=== PATIENT | female | born 1965 | race Caucasian/White ===

== ENCOUNTER 2019-01-16 11:20 | Inpatient (IN) | payer MEDICARE, MEDICAID ==
[2019-01-16] MEDS ORDERED: Albuterol/Ipratropium 3.0-0.5 MG/3 ML Neb Soln NEB ONE ×2 (11:47→12:21)
--- NOTE | 2019-01-16 11:50 | EDM.PDOC ---
ED HPI GENERAL MEDICAL PROBLEM - General Chief Complaint: Respiratory Problem Stated Complaint: SOB HAS CANCER IN RT LUNG Time Seen by Provider: 01/16/19 11:42 Source of Information: Reports: Patient History Limitations: Reports: No Limitations - History of Present Illness INITIAL COMMENTS - FREE TEXT/NARRATIVE: 53-year-old female presents to the ED in the accompaniement of her daughter. Patient was recently diagnosed within the last month with left-sided lung cancer with known metastatic disease to the supraclavicular lymph node and perihilar nodes. Considered inoperable. Zosyn the ED acutely short of breath with rattling and wheezing in her chest. She is she is very dyspneic on minimal exertion can barely talk. Sputum that's coming up has a yellowish green tinge to it without blood. She's had some chills but no fever present. Appetite remains extremely poor. Patient states she's lost about 40 pounds of weight in the last 2 months. Nothing tastes good. Mukherjee at this time whether she is contemplating or receiving chemotherapy. Present sats are only 88% on room air. She will be started on oxygen at 3 L/m by nasal cannula. She is audibly wheezing. She will be given a DuoNeb as soon as possible. Lung biopsies were done towards the end of last month but they have not yet received the pathology report in [place] not been set up with a formal appointment with oncology either in [place] or in [place]. They're going to go wherever they can get an appointment the quickest. Onset: Today Onset Date: 01/14/19 (Gradually getting worse over the last 3-4 days.) Duration: Day(s):, Getting Worse Location: Reports: Chest (More more dyspneic on minimal exertion and now wheezing at rest. Didn't sleep at all last night.) Quality: Reports: Other Severity: Severe (Dyspnea with wheeze) Improves with: Reports: Rest Worsens with: Reports: Movement Context: Denies: Activity, Exercise (Any kind of activity makes it much worse.) , Lifting, Sick Contact, Trauma, Other Associated Symptoms: Reports: Chest Pain, Cough, cough w sputum (Some chest pain with deep inspiration.), Fever/Chills, Loss of Appetite, Malaise (With severe weight loss over the last 6-8 weeks), Shortness of Breath, Weakness. Denies: Confusion, Diaphoresis ( Some yellowish greenish sputum.), Headaches ( Chills but no defined fever), Nausea/Vomiting, Rash, Seizure, Syncope Treatments RADIATION CONTROL SPECIALIST: Reports: Other (see below) (None.) Right Upper Chest Pain Score (Numeric/FACES): 2 - Related Data Allergies Allergy/AdvReac Type Severity Reaction Status Date / Time No Known Allergies Allergy Verified 01/16/19 11:40 Home Meds: Home Meds Albuterol [Proventil HFA] 2 puff INH Q4H PRN 01/16/19 [History] Albuterol/Ipratropium [DuoNeb 3.0-0.5 MG/3 ML] 3 ml .XX QID #120 neb 01/16/19 [ Rx] levoFLOXacin [Levaquin] 500 mg PO DAILY #9 tab 01/16/19 [Rx] predniSONE [Deltasone] 20 mg PO ASDIRECTED #15 tablet 01/16/19 [Rx] Past Medical History Oncologic (Cancer) History: Reports: Lung, Metastatic (Diagnosis left lung cancer about a month ago. Headache to the perihilar lymph nodes as well as supraclavicular lymph node the left side.) Social & Family History - Living Situation & Occupation Living situation: Reports: Occupation: Disabled ED ROS GENERAL - Review of Systems Review Of Systems: See Below Constitutional: Reports: Chills, Malaise, Weakness, Fatigue, Decreased Appetite (She estimates 30-40 pounds in the last 6 weeks), Weight Loss. Denies: Fever HEENT: Reports: Glasses Respiratory: Reports: Shortness of Breath, Wheezing, Cough, Sputum. Denies: Pleuritic Chest Pain, Hemoptysis (Yellowish green in color.) Cardiovascular: Reports: Chest Pain (Central chest pain.), Dyspnea on Exertion, Orthopnea. Denies: Blood Pressure Problem, Claudication (Not usually but blood pressure is [phone] at the time of exam.), Edema, Lightheadedness, Palpitations Endocrine: Reports: Fatigue GI/Abdominal: Reports: Anorexia, Constipation, Decreased Appetite : Reports: No Symptoms Musculoskeletal: Reports: No Symptoms Skin: Reports: No Symptoms Neurological: Reports: No Symptoms Psychiatric: Reports: No Symptoms Hematologic/Lymphatic: Reports: No Symptoms ED EXAM, GENERAL - Physical Exam Exam: See Below Exam Limited By: Respiratory Distress General Appearance: Alert, Severe Distress, Other (Temperatures 37.1. Pulse 102 in sinus respiratory 32-36/m with sats of 88% on room air.) Eye Exam: Bilateral Eye: Normal Inspection (Mild left low pallor. No scleral icterus.) Throat/Mouth: Other (Tongue is dry and coated.) Neck: Normal Inspection, Supple, Non-Tender, Full Range of Motion. No: Lymphadenopathy (L), Lymphadenopathy (R) Respiratory/Chest: No Respiratory Distress, Respiratory Distress, Decreased Breath Sounds (Breath sounds decreased to both lower bases by 20%.), Rhonchi, Wheezing (Wheezing and rhonchi throughout all lung goldstein.). No: Normal Breath Sounds (Marked tachypnea at rest with sats of 88% on room air.), Rales Cardiovascular: Normal Peripheral Pulses, Regular Rate, Rhythm, No Edema, No Gallop, Other (Heart sounds are difficult to hear due to rhonchi in the chest.) Peripheral Pulses: 2+: Posterior Tibial (L), Posterior Tibial (R), Dorsalis Pedis (L), Dorsalis Pedis (R) GI/Abdominal: Normal Bowel Sounds, Soft, Non-Tender, No Organomegaly, No Abnormal Bruit, No Mass, Pelvis Stable Back Exam: Other (All spinous processes are easily visible. Ribs are visible as well.) Extremities: Normal Inspection ( Kicked in appearance.), Normal Range of Motion , Non-Tender Neurological: Alert, Oriented, CN II-XII Intact, Normal Cognition Psychiatric: Anxious, Other (Respiratory distress.) Skin Exam: Warm, Dry, Intact, Normal Color, No Rash, Other (Does not feel febrile at this time.) EKG INTERPRETATION EKG Date: 01/16/19 Time: 11:55 Rhythm: NSR Rate (Beats/Min): 94 [place]: Normal P-Wave: Enlarged QRS: Other (Right atrial hypertrophy. Early R-wave transition consider right ventricular hypertrophy versus septal hypertrophy pattern. There is near Q-wave in V1 and V2. Cannot rule out old anteroseptal myocardial infarction. Mildly decreased voltage limb leads) ST-T: Other (Q-wave in aVL and T-wave flattening. Nonspecific finding.) QT: Normal EKG Interpretation Comments: Abnormal ECG Course - Vital Signs Last Recorded V/S: Last Vital Signs Temp 37.1 C 01/16/19 11:35 Pulse 92 01/16/19 12:50 Resp 18 01/16/19 12:50 BP 102/64 01/16/19 12:50 Pulse Ox 96 01/16/19 12:50 - Orders/Labs/Meds Orders: Active Orders 24 hr Category Date Time Status EKG Documentation Completion [RC] STAT Care 01/16/19 11:47 Active Oxygen Therapy [RC] ASDIRECTED Care 01/16/19 11:48 Active RT Aerosol Therapy [RC] ASDIRECTED Care 01/16/19 11:47 Active RT Aerosol Therapy [RC] ASDIRECTED Care 01/16/19 12:21 Active CULTURE BLOOD [BC] Stat Lab 01/16/19 12:03 Received CULTURE BLOOD [BC] Stat Lab 01/16/19 12:20 Received Dextrose 5%-0.9% NaCl [Dextrose 5%-Normal Saline] 1,000 Med 01/16/19 12:00 Active ml IV ASDIRECTED Blood Culture x2 Reflex Set [OM.PC] Stat Oth 01/16/19 11:49 Ordered Medication Orders Dextrose/Sodium Chloride (Dextrose 5%-Normal Saline) 1,000 mls @ 150 mls/hr IV ASDIRECTED TONIA Last Admin: 01/16/19 12:10 Dose: 150 mls/hr Labs: Laboratory Tests 01/16/19 01/16/19 01/16/19 Range/Units 11:56 11:56 11:56 WBC 10.78 H (3.98-10.04) K/mm3 RBC 4.64 (3.98-5.22) M/mm3 Hgb 12.3 (11.2-15.7) gm/dl Hct 38.8 (34.1-44.9) % MCV 83.6 (79.4-94.8) fl MCH 26.5 (25.6-32.2) pg MCHC 31.7 L (32.2-35.5) g/dl RDW Std Deviation 45.8 (36.4-46.3) fL Plt Count 487 H (182-369) K/mm3 MPV 9.1 L (9.4-12.3) fl Neutrophils % (Manual) 73 H (40-60) % Band Neutrophils % 0 (0-10) % Lymphocytes % (Manual) 23 (20-40) % Atypical Lymphs % 0 % Immat Monocytes % (Man) 0 Monocytes % (Manual) 4 (2-10) % Eosinophils % (Manual) 0 L (0.7-5.8) % Basophils % (Manual) 0 L (0.1-1.2) Metamyelocytes % 0 Myelocytes % 0 Promyelocytes % 0 Blast Cells % 0 Plasma Cell % (Manual) 0 Nucleated RBCs 0.0 % Platelet Estimate Adequate RBC Morph Comment Normal PT 11.0 (9.7-12.0) SECONDS INR 1.01 APTT 28 (22-31) SECONDS Sodium 136 (136-145) mEq/L Potassium 3.5 (3.5-5.1) mEq/L Chloride 98 (98-107) mEq/L Carbon Dioxide 30 (21-32) mEq/L Anion Gap 11.5 (5-15) BUN 7 (7-18) mg/dL Creatinine 0.7 (0.55-1.02) mg/dL Est Cr Clr Drug Dosing 71.71 mL/min Estimated GFR (MDRD) > 60 (>60) mL/min BUN/Creatinine Ratio 10.0 L (14-18) Glucose 137 H (74-106) mg/dL Lactic Acid (0.4-2.0) mmol/L Calcium 9.8 (8.5-10.1) mg/dL Magnesium 1.9 (1.8-2.4) mg/dl Total Bilirubin 0.3 (0.2-1.0) mg/dL AST 13 L (15-37) U/L ALT 23 (14-59) U/L Alkaline Phosphatase 91 (46-116) U/L Troponin I < 0.017 (0.00-0.056) ng/mL C-Reactive Protein 6.4 H* (<1.0) mg/dL NT-Pro-B Natriuret Pep (0-125) pg/mL Total Protein 7.8 (6.4-8.2) g/dl Albumin 3.1 L (3.4-5.0) g/dl Globulin 4.7 gm/dL Albumin/Globulin Ratio 0.7 L (1-2) 01/16/19 01/16/19 Range/Units 11:56 11:56 WBC (3.98-10.04) K/mm3 RBC (3.98-5.22) M/mm3 Hgb (11.2-15.7) gm/dl Hct (34.1-44.9) % MCV (79.4-94.8) fl MCH (25.6-32.2) pg MCHC (32.2-35.5) g/dl RDW Std Deviation (36.4-46.3) fL Plt Count (182-369) K/mm3 MPV (9.4-12.3) fl Neutrophils % (Manual) (40-60) % Band Neutrophils % (0-10) % Lymphocytes % (Manual) (20-40) % Atypical Lymphs % % Immat Monocytes % (Man) Monocytes % (Manual) (2-10) % Eosinophils % (Manual) (0.7-5.8) % Basophils % (Manual) (0.1-1.2) Metamyelocytes % Myelocytes % Promyelocytes % Blast Cells % Plasma Cell % (Manual) Nucleated RBCs % Platelet Estimate RBC Morph Comment PT (9.7-12.0) SECONDS INR APTT (22-31) SECONDS Sodium (136-145) mEq/L Potassium (3.5-5.1) mEq/L Chloride (98-107) mEq/L Carbon Dioxide (21-32) mEq/L Anion Gap (5-15) BUN (7-18) mg/dL Creatinine (0.55-1.02) mg/dL Est Cr Clr Drug Dosing mL/min Estimated GFR (MDRD) (>60) mL/min BUN/Creatinine Ratio (14-18) Glucose (74-106) mg/dL Lactic Acid 1.9 (0.4-2.0) mmol/L Calcium (8.5-10.1) mg/dL Magnesium (1.8-2.4) mg/dl Total Bilirubin (0.2-1.0) mg/dL AST (15-37) U/L ALT (14-59) U/L Alkaline Phosphatase (46-116) U/L Troponin I (0.00-0.056) ng/mL C-Reactive Protein (<1.0) mg/dL NT-Pro-B Natriuret Pep 117 (0-125) pg/mL Total Protein (6.4-8.2) g/dl Albumin (3.4-5.0) g/dl Globulin gm/dL Albumin/Globulin Ratio (1-2) Meds: Medications Generic Name Dose Route Start Last Admin Trade Name Heide PRN Reason Stop Dose Admin Dextrose/Sodium Chloride 1,000 mls @ 150 mls/hr 01/16/19 12:00 01/16/19 12:10 Dextrose 5%-Normal Saline IV 150 mls/hr ASDIRECTED TONIA Administration Discontinued Medications Generic Name Dose Route Start Last Admin Trade Name Heide PRN Reason Stop Dose Admin Albuterol/Ipratropium 3 ml 01/16/19 11:47 01/16/19 11:55 Duoneb 3.0-0.5 Mg/3 Ml NEB 01/16/19 11:48 3 ml ONETIME ONE Administration Albuterol/Ipratropium 3 ml 01/16/19 12:21 01/16/19 12:50 Duoneb 3.0-0.5 Mg/3 Ml NEB 01/16/19 12:22 3 ml ONETIME ONE Administration Levofloxacin 500 mg 01/16/19 13:02 01/16/19 13:12 Levaquin PO 01/16/19 13:03 500 mg ONETIME ONE Administration Methylprednisolone Sodium Succinate 125 mg 01/16/19 13:02 01/16/19 13:09 Solu-Medrol IVPUSH 01/16/19 13:03 125 mg ONETIME ONE Administration - Radiology Interpretation Free Text/Narrative:: 53-year-old female presents to the ED with severe dyspnea and respiratory distress. She can talk on only one or 2 word sentences. She has audible wheezing and rhonchi in all lung goldstein. O2 sats are only 88% on room air with tachypnea at 32-34 per minute. Plan she will receive DuoNeb immediately. IV will be D5 normal saline at 150 mils per hour. Oxygen will be started at 3 L/m per nasal cannula. Septic workup will be completed since she is coughing up greenish sputum but is afebrile at present. - Re-Assessments/Exams Free Text/Narrative Re-Assessment/Exam: 01/16/19 12:20 she is able to speak in full sentences now. Sats are 98% on 2 L/ m. She remains audible wheezing and has a much more congested sounding cough now. Will repeat DuoNeb at this time. Chest x-ray just gotten done. 01/16/19 12:27 chest x-ray reveals a diffuse vascular congestion pattern. There is a ringlike density adjacent to the right perihilar area of unclear etiology. It has a thickened wall. Interstitial changes are also seen within the right upper chest. Mild blunting of the left costophrenic angle is also appreciated likely due to small pleural effusion. Appears to be a segment of atypical atelectasis. The upper mediastinum is widened and difficult to exclude adenopathy. Previous cervical spine surgery appreciated. 01/16/19 12:53 Labs reveal a white count of 10.78 with 73% neutrophils and no band cells. Hemoglobin is 12.3 with hematocrit of 38.8. Platelet count is elevated at 487,000. PT is 11.0 with an INR 1.01. PTT is 28. Sodium 136 potassium low-normal at 3.5. Chloride is 98 with a bicarbonate 30. Anion gap is 11.5 BUN is 7 with a creatinine of 0.7. GFR is greater than 60. Glucose is 137 lactic acid 1.9. Calcium is 9.8 magnesium 1.9. Liver function is normal. C- reactive protein is 6.4 troponin I is less than 0.017. BNP is 117. Total protein is 7.8 with an albumin fraction that is low at 3.1. She is receiving second dose of DuoNeb now. She does have a home nebulizer. Chemotherapies is in the wind. She is still awaiting oncology consultation after lung biopsy was done last week. Going to give her dose of Levaquin 500 by mouth. She'll receive the first dose of steroid Solu-Medrol 125 mg IV now. 01/16/19 13:23 upon standing and walking in the room she decompensated severely down to 86%. Therefore she is going to require admission to hospital for oxygen support and continued nebulizer treatments to help clear her lungs of thickened mucus. I have given her her initial dose of Levaquin orally in the department not anticipating her need to stay. I'll discuss case with on-call hospice Dr. Tran with a view to admission to the hospital med surgery. 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 Qualified Code(s): C34.91 - Malignant neoplasm of unspecified part of right bronchus or lung Pneumonia Qualifiers: Lung location: upper lobe of lung - Discharge Information *PRESCRIPTION DRUG MONITORING PROGRAM REVIEWED*: Not Applicable *COPY OF PRESCRIPTION DRUG MONITORING REPORT IN PATIENT DELMIS: Not Applicable Prescriptions: Albuterol/Ipratropium [DuoNeb 3.0-0.5 MG/3 ML] 3 ml .XX QID #120 neb levoFLOXacin [Levaquin] 500 mg PO DAILY #9 tab predniSONE [Deltasone] 20 mg PO ASDIRECTED #15 tablet Instructions: Chronic Obstructive Pulmonary Disease Exacerbation, [id number] , Cough, Adult, [id number] Referrals: Chiquita Fernandez NP [Primary Care Provider] - Forms: ED Department Discharge - My Orders Last 24 Hours: My Active Orders 01/16/19 11:47 EKG Documentation Completion [RC] STAT RT Aerosol Therapy [RC] ASDIRECTED 01/16/19 11:48 Oxygen Therapy [RC] ASDIRECTED 01/16/19 11:49 Blood Culture x2 Reflex Set [OM.PC] Stat 01/16/19 12:00 Dextrose 5%-0.9% NaCl [Dextrose 5%-Normal Saline] 1,000 ml IV ASDIRECTED 01/16/19 12:03 CULTURE BLOOD [BC] Stat 01/16/19 12:20 CULTURE BLOOD [BC] Stat 01/16/19 12:21 RT Aerosol Therapy [RC] ASDIRECTED - Assessment/Plan Last 24 Hours: My Active Orders 01/16/19 11:47 EKG Documentation Completion [RC] STAT RT Aerosol Therapy [RC] ASDIRECTED 01/16/19 11:48 Oxygen Therapy [RC] ASDIRECTED 01/16/19 11:49 Blood Culture x2 Reflex Set [OM.PC] Stat 01/16/19 12:00 Dextrose 5%-0.9% NaCl [Dextrose 5%-Normal Saline] 1,000 ml IV ASDIRECTED 01/16/19 12:03 CULTURE BLOOD [BC] Stat 01/16/19 12:20 CULTURE BLOOD [BC] Stat 01/16/19 12:21 RT Aerosol Therapy [RC] ASDIRECTED
[2019-01-16] MEDS ORDERED: Dextrose 5%-0.9% NaCl 1,000 ML IV SCH (12:00)
[2019-01-16] MEDS ORDERED: methylPREDNISolone Sodium Succinate 125 MG/2 ML SDV IVPUSH ONE (13:02)
[2019-01-16] MEDS ORDERED: Levofloxacin 250 MG Tab PO ONE (13:02)
--- NOTE | 2019-01-16 13:11 | CR ---
Chest: Portable view of the chest was obtained. Comparison: No prior chest x-ray is available. Findings: Thick walled cavity appears to be present within the upper right chest. Interstitial changes are also seen within the right upper chest. Blunting of the lateral left costophrenic angle is seen either chronic or due to pleural effusion. Lungs otherwise are clear. Heart size is normal. Upper mediastinum is widened and difficult to exclude adenopathy. Prior cervical spine surgery is noted. Prior lumbar spine surgery is noted. Impression: 1. Thick walled cavity within the upper right chest. Interstitial change within the upper right lung. Thickening of the soft tissues within the upper mediastinum. Chest CT (with contrast) could be considered to further evaluate. 2. Blunting of the lateral left costophrenic angle either chronic or due to small pleural effusion. 3. Previous cervical spine surgery and lumbar spine surgery are noted. Diagnostic code #9
[2019-01-16] MEDS ORDERED: Sodium Chloride 0.9% 10 ML Syringe FLUSH PRN (17:34)
[2019-01-16] MEDS ORDERED: Acetaminophen 325 MG Tab PO PRN (17:34)
[2019-01-16] MEDS ORDERED: Ondansetron 4 MG/2 ML SDV IV PRN (17:34)
[2019-01-16] MEDS ORDERED: oxyCODONE 5 MG Tab PO PRN (17:34)
[2019-01-16] MEDS ORDERED: Melatonin 3 MG Tab PO PRN (17:37)
--- NOTE | 2019-01-16 17:40 | PCM.HP.2 ---
H&P History of Present Illness - General Date of Service: 01/16/19 Admit Problem/Dx: Admission Diagnosis/Problem Admission Diagnosis/Problem Carcinoma of lung - History of Present Illness Initial Comments - Free Text/Narative: 53-year-old female presented to the emergency room with worsening shortness of breath the last 2-3 weeks. She states that it started just after her lung biopsy for her presumed metastatic lung cancer. She states last night she had a very bad night requiring sleeping straight up because she was gurgling. She has a productive sputum of white yellow sputum. She has had worsening orthopnea and PND. She does complain of night sweats but not fever or chills. She states that she has had a 40 pound weight loss over the last few months. She states nothing tastes good and she has no appetite. She has appointment with Dr. Coombs but has not started active treatment. CT scan of the neck, chest, abdomen and pelvis with IV contrast done on December 20, 2018 showed: 1. Cavitary right upper lobe mass appears malignant. 2. Probable lymphangitic spread of metastatic disease in the right upper lobe. 3. Limited bilateral hilar, mediastinal, and left supraclavicular lymphadenopathy. 4. Cystic changes about the left cerebellum could represent an arachnoid cyst, but cystic metastasis should be excluded with brain MRI. When she presented to the emergency room her options saturation was around 88% on room air. She was started on 3 L/m nasal cannula which brought her oxygen saturation into the mid 90s. She did have audible wheezing and was given a DuoNeb. She was unable to speak in full sentences and saturations were 90% on 2 L/m. She continued to have audible wheezing and is unable to stand or walk without decompensating severely down to 86%. Initial labs: WBC 10.78 platelets 487, hemoglobin 12.3, INR normal at 1.01, sodium normal 136, potassium 3.5, chloride 98, carbon dioxide 30, anion gap 11.5 , BUN 7, creatinine 0.7, lactic acid 1.9, troponin less than 0.017, suprapubic protein 6.4, magnesium 1.9. Right Upper Chest Pain Score (Numeric/FACES): 2 - Related Data Allergies/Adverse Reactions: Allergies Allergy/AdvReac Type Severity Reaction Status Date / Time No Known Allergies Allergy Verified 01/16/19 11:40 Home Medications: Home Meds Albuterol [Proventil HFA] 2 puff INH Q4H PRN 01/16/19 [History] Albuterol/Ipratropium [DuoNeb 3.0-0.5 MG/3 ML] 3 ml .XX QID #120 neb 01/16/19 [ Rx] levoFLOXacin [Levaquin] 500 mg PO DAILY #9 tab 01/16/19 [Rx] predniSONE [Deltasone] 20 mg PO ASDIRECTED #15 tablet 01/16/19 [Rx] Past Medical History HEENT History: Reports: Impaired Vision Other HEENT History: wears eyeglasses. Respiratory History: Reports: COPD, Other (See Below) Other Respiratory History: lung cancer. new diagnosis pending of COPD Gastrointestinal History: Reports: [employer] History: Reports: Musculoskeletal History: Reports: Fracture, Other (See Below) Other Musculoskeletal History: pinky finger. Immunologic History: Reports: None Oncologic (Cancer) History: Reports: Lung, Metastatic Other Oncologic History: possibly metastatic to lymphnode. - Infectious Disease History Infectious Disease History: Reports: Chicken Pox - Past Surgical History Female Surgical History: Reports: Section, Hysterectomy Musculoskeletal Surgical History: Reports: Other (See Below) Other Musculoskeletal Surgeries/Procedures:: rods to lower back, neck fusion. Social & Family History - Family History Family Medical History: Noncontributory - Tobacco Use Smoking Status *Q: Current Every Day Smoker Years of Tobacco use: 38 Packs/Tins Daily: 0.5 Second Hand Smoke Exposure: No - Caffeine Use Caffeine Use: Reports: Coffee - Recreational Drug Use Recreational Drug Use: No - Living Situation & Occupation Living situation: Reports: Occupation: Disabled H&P Review of Systems - Review of Systems: Review Of Systems: ROS reveals no pertinent complaints other than HPI. Exam - Exam Exam: See Below - Vital Signs Vital Signs: Last Vital Signs Temp 98.4 F 01/16/19 16:11 Pulse 87 01/16/19 16:11 Resp 14 01/16/19 16:11 BP 115/69 01/16/19 16:11 Pulse Ox 97 01/16/19 16:11 Weight: 108 lb 4.8 oz - Exam Quality Assessment: Supplemental Oxygen General: Alert, Oriented, 4 HEENT: Conjunctiva Clear, EOMI, Hearing Intact, Mucosa Moist & [place], Normal Nasal Septum, TMs Clear, PERRLA Neck: Supple, Trachea Midline, 2 Lungs: Rhonchi (throughout), Wheezing (throughout) Cardiovascular: Regular Rate, Regular Rhythm GI/Abdominal Exam: Normal Bowel Sounds, Soft, Non-Tender, No Organomegaly, No Distention, No Abnormal Bruit, No Mass, Pelvis Stable Back Exam: Normal Inspection, Full Range of Motion, NT Extremities: Normal Inspection, Normal Range of Motion, Non-Tender, No Pedal Edema, Normal Capillary Refill Skin: Warm, Dry, Intact Neurological: Cranial Nerves Intact Neuro Extensive - Mental Status: Alert, Oriented x3 Neuro Extensive - Motor, Sensory, Reflexes: CN II-XII Intact Psychiatric: Alert, Normal Affect, Normal Mood - Patient Data Lab Results Last 24 hrs: Laboratory Results - last 24 hr 01/16/19 01/16/19 01/16/19 Range/Units 11:56 11:56 11:56 WBC 10.78 H (3.98-10.04) K/mm3 RBC 4.64 (3.98-5.22) M/mm3 Hgb 12.3 (11.2-15.7) gm/dl Hct 38.8 (34.1-44.9) % MCV 83.6 (79.4-94.8) fl MCH 26.5 (25.6-32.2) pg MCHC 31.7 L (32.2-35.5) g/dl RDW Std Deviation 45.8 (36.4-46.3) fL Plt Count 487 H (182-369) K/mm3 MPV 9.1 L (9.4-12.3) fl Neutrophils % (Manual) 73 H (40-60) % Band Neutrophils % 0 (0-10) % Lymphocytes % (Manual) 23 (20-40) % Atypical Lymphs % 0 % Immat Monocytes % (Man) 0 Monocytes % (Manual) 4 (2-10) % Eosinophils % (Manual) 0 L (0.7-5.8) % Basophils % (Manual) 0 L (0.1-1.2) Metamyelocytes % 0 Myelocytes % 0 Promyelocytes % 0 Blast Cells % 0 Plasma Cell % (Manual) 0 Nucleated RBCs 0.0 % Platelet Estimate Adequate RBC Morph Comment Normal PT 11.0 (9.7-12.0) SECONDS INR 1.01 APTT 28 (22-31) SECONDS Sodium 136 (136-145) mEq/L Potassium 3.5 (3.5-5.1) mEq/L Chloride 98 (98-107) mEq/L Carbon Dioxide 30 (21-32) mEq/L Anion Gap 11.5 (5-15) BUN 7 (7-18) mg/dL Creatinine 0.7 (0.55-1.02) mg/dL Est Cr Clr Drug Dosing 71.71 mL/min Estimated GFR (MDRD) > 60 (>60) mL/min BUN/Creatinine Ratio 10.0 L (14-18) Glucose 137 H (74-106) mg/dL Lactic Acid (0.4-2.0) mmol/L Calcium 9.8 (8.5-10.1) mg/dL Magnesium 1.9 (1.8-2.4) mg/dl Total Bilirubin 0.3 (0.2-1.0) mg/dL AST 13 L (15-37) U/L ALT 23 (14-59) U/L Alkaline Phosphatase 91 (46-116) U/L Troponin I < 0.017 (0.00-0.056) ng/mL C-Reactive Protein 6.4 H* (<1.0) mg/dL NT-Pro-B Natriuret Pep (0-125) pg/mL Total Protein 7.8 (6.4-8.2) g/dl Albumin 3.1 L (3.4-5.0) g/dl Globulin 4.7 gm/dL Albumin/Globulin Ratio 0.7 L (1-2) 01/16/19 01/16/19 Range/Units 11:56 11:56 WBC (3.98-10.04) K/mm3 RBC (3.98-5.22) M/mm3 Hgb (11.2-15.7) gm/dl Hct (34.1-44.9) % MCV (79.4-94.8) fl MCH (25.6-32.2) pg MCHC (32.2-35.5) g/dl RDW Std Deviation (36.4-46.3) fL Plt Count (182-369) K/mm3 MPV (9.4-12.3) fl Neutrophils % (Manual) (40-60) % Band Neutrophils % (0-10) % Lymphocytes % (Manual) (20-40) % Atypical Lymphs % % Immat Monocytes % (Man) Monocytes % (Manual) (2-10) % Eosinophils % (Manual) (0.7-5.8) % Basophils % (Manual) (0.1-1.2) Metamyelocytes % Myelocytes % Promyelocytes % Blast Cells % Plasma Cell % (Manual) Nucleated RBCs % Platelet Estimate RBC Morph Comment PT (9.7-12.0) SECONDS INR APTT (22-31) SECONDS Sodium (136-145) mEq/L Potassium (3.5-5.1) mEq/L Chloride (98-107) mEq/L Carbon Dioxide (21-32) mEq/L Anion Gap (5-15) BUN (7-18) mg/dL Creatinine (0.55-1.02) mg/dL Est Cr Clr Drug Dosing mL/min Estimated GFR (MDRD) (>60) mL/min BUN/Creatinine Ratio (14-18) Glucose (74-106) mg/dL Lactic Acid 1.9 (0.4-2.0) mmol/L Calcium (8.5-10.1) mg/dL Magnesium (1.8-2.4) mg/dl Total Bilirubin (0.2-1.0) mg/dL AST (15-37) U/L ALT (14-59) U/L Alkaline Phosphatase (46-116) U/L Troponin I (0.00-0.056) ng/mL C-Reactive Protein (<1.0) mg/dL NT-Pro-B Natriuret Pep 117 (0-125) pg/mL Total Protein (6.4-8.2) g/dl Albumin (3.4-5.0) g/dl Globulin gm/dL Albumin/Globulin Ratio (1-2) Result Diagrams: 01/16/19 11:56 01/16/19 11:56 Imaging Impressions Last 24 hrs: Chest x-ray: 1. Thick walled cavity within the upper right chest. Interstitial change within the upper right lung. Thickening of the soft tissues within the upper mediastinum. 2. Blunting of the lateral left costophrenic angle either chronic or due to small pleural effusion. 3. Previous cervical spine surgery and lumbar spine surgery are noted. Problem List Initiated/Reviewed/Updated: Yes Orders Last 24hrs: Active Orders 24 hr Category Date Time Status Admission Status [Patient Status] [ADT] Routine ADT 01/16/19 13:26 Active Oxygen Therapy [RC] ASDIRECTED Care 01/16/19 11:48 Active Oxygen Therapy [RC] PRN Care 01/16/19 17:34 Ordered RT Aerosol Therapy [RC] ASDIRECTED Care 01/16/19 11:47 Active Up ad Vilma [RC] ASDIRECTED Care 01/16/19 17:34 Ordered VTE/DVT Education [RC] PER UNIT ROUTINE Care 01/16/19 17:34 Ordered Vital Signs [RC] Q4H Care 01/16/19 17:34 Ordered Regular Diet [DIET] Diet 01/16/19 Dinner Active C-REACTIVE PROTEIN [CHEM] AM Lab 01/17/19 05:11 Ordered C-REACTIVE PROTEIN [CHEM] AM Lab 01/18/19 05:11 Ordered C-REACTIVE PROTEIN [CHEM] AM Lab 01/19/19 05:11 Ordered CBC WITH AUTO DIFF [HEME] AM Lab 01/17/19 05:11 Ordered CBC WITH AUTO DIFF [HEME] AM Lab 01/18/19 05:11 Ordered CBC WITH AUTO DIFF [HEME] AM Lab 01/19/19 05:11 Ordered COMPREHENSIVE METABOLIC PN,CMP [CHEM] AM Lab 01/17/19 05:11 Ordered COMPREHENSIVE METABOLIC PN,CMP [CHEM] AM Lab 01/18/19 05:11 Ordered COMPREHENSIVE METABOLIC PN,CMP [CHEM] AM Lab 01/19/19 05:11 Ordered CULTURE BLOOD [BC] Stat Lab 01/16/19 12:03 Received CULTURE BLOOD [BC] Stat Lab 01/16/19 12:20 Received CULTURE SPUTUM + SMEAR [RM] Stat Lab 01/16/19 17:37 Ordered MAGNESIUM [CHEM] AM Lab 01/17/19 05:11 Ordered MAGNESIUM [CHEM] AM Lab 01/18/19 05:11 Ordered MAGNESIUM [CHEM] AM Lab 01/19/19 05:11 Ordered Acetaminophen [Tylenol] Med 01/16/19 17:34 Ordered 650 mg PO Q4H PRN Albuterol [Proventil Neb Soln] Med 01/16/19 17:34 Ordered 2.5 mg NEB Q2H PRN Albuterol/Ipratropium [DuoNeb 3.0-0.5 MG/3 ML] Med 01/16/19 21:00 Ordered 3 ml NEB Q6HRRT Dextrose 5%-0.9% NaCl [Dextrose 5%-Normal Saline] 1,000 Med 01/16/19 12:00 Active ml IV ASDIRECTED Enoxaparin [Lovenox] Med 01/17/19 09:00 Ordered 40 mg SUBCUT DAILY Melatonin Med 01/16/19 17:37 Ordered 6 mg PO BEDTIME PRN Ondansetron [Zofran] Med 01/16/19 17:34 Ordered 4 mg IV Q4H PRN Sodium Chloride 0.9% [Saline Flush] Med 01/16/19 17:34 Ordered 10 ml FLUSH ASDIRECTED PRN levoFLOXacin [Levaquin] Med 01/17/19 13:00 Ordered 750 mg PO Q24H oxyCODONE Med 01/16/19 17:34 Ordered 5 mg PO Q4H PRN Blood Culture x2 Reflex Set [OM.PC] Stat Oth 01/16/19 11:49 Ordered Saline Lock Insert [OM.PC] Routine Oth 01/16/19 17:34 Ordered Resuscitation Status Routine Resus Stat 01/16/19 17:34 Ordered Medication Orders Acetaminophen (Tylenol) 650 mg PO Q4H PRN PRN Reason: Pain (Mild 1-3)/fever Albuterol (Proventil Neb Soln) 2.5 mg NEB Q2H PRN PRN Reason: Shortness Of Breath/wheezing Albuterol/Ipratropium (Duoneb 3.0-0.5 Mg/3 Ml) 3 ml NEB Q6HRRT TONIA Enoxaparin Sodium (Lovenox) 40 mg SUBCUT DAILY TONIA Dextrose/Sodium Chloride (Dextrose 5%-Normal Saline) 1,000 mls @ 150 mls/hr IV ASDIRECTED TONIA Last Admin: 01/16/19 12:10 Dose: 150 mls/hr Levofloxacin (Levaquin) 750 mg PO Q24H TONIA Melatonin (Melatonin) 6 mg PO BEDTIME PRN PRN Reason: Insomnia Ondansetron HCl (Zofran) 4 mg IV Q4H PRN PRN Reason: Nausea/Vomiting Oxycodone HCl (Oxycodone) 5 mg PO Q4H PRN PRN Reason: Pain (moderate 4-6) Sodium Chloride (Saline Flush) 10 ml FLUSH ASDIRECTED PRN PRN Reason: Keep Vein Open Assessment/Plan Comment:: Assessment * 53-year-old female with metastatic lung cancer admitted for complications of her metastatic lung cancer * Pneumonia versus postobstructive pneumonia versus COPD exacerbation * 40 pound weight loss in the last few months. Plan * Refer to [facility] floor for observation * Levaquin 500 mg given in the ER. We will continue with Levaquin 750 mg daily starting tomorrow * Solu-Medrol 125 mg IV given in ER. Continue 40 mg every 8 hours and may switch to oral tomorrow. * FiO2 to keep pulse ox greater than 92%. * Albuterol and Atrovent nebulizers * Dietary consult * VTE prophylaxis with enoxaparin * CODE STATUS full code - Mortality Measure Prognosis:: Poor
[2019-01-16] MEDS: Albuterol 0.083% 2.5 MG/3 ML Neb Soln NEB PRN (17:58)
[2019-01-16] MEDS: Albuterol/Ipratropium 3.0-0.5 MG/3 ML Neb Soln NEB SCH (20:50)
[2019-01-17] MEDS: Albuterol 0.083% 2.5 MG/3 ML Neb Soln NEB PRN ×2 (00:56→05:47)
[2019-01-17] MEDS: methylPREDNISolone Sodium Succinate 40 MG/1 ML SDV IVPUSH SCH ×4 (01:38→20:57)
[2019-01-17] MEDS: Albuterol/Ipratropium 3.0-0.5 MG/3 ML Neb Soln NEB SCH ×2 (02:16→08:00)
[2019-01-17] MEDS: Enoxaparin 40 MG/0.4 ML Syringe SUBCUT SCH (09:00)
[2019-01-17] MEDS ORDERED: Levalbuterol HCl 1.25 MG/3 ML Neb NEB PRN (10:41)
[2019-01-17] MEDS: Nicotine 21 MG/24 Hr Patch TRDERM SCH (10:42)
[2019-01-17] MEDS ORDERED: LORazepam 2 MG/ML SDV IVPUSH PRN (12:07)
[2019-01-17] MEDS: guaiFENesin 600 MG Tab.ER PO SCH ×2 (13:36→21:05)
[2019-01-17] MEDS: Levofloxacin 750 MG Tab PO SCH (13:36)
[2019-01-17] MEDS: Ipratropium 0.02% 0.5 MG/2.5 ML Neb Soln NEB SCH ×2 (15:01→20:23)
[2019-01-17] MEDS: Levalbuterol HCl 1.25 MG/0.5 ML Neb NEB SCH ×2 (15:01→20:23)
--- NOTE | 2019-01-17 16:41 | PCM.PN ---
- General Info Date of Service: 01/17/19 Admission Dx/Problem (Free Text): Admission Diagnosis/Problem Admission Diagnosis/Problem Carcinoma of lung Subjective Update: patient states that she is starting to improve. She mentioned wanting to go home , but nursing mentioned that she still has anxiety and a bit of air hunger. Functional Status: Reports: Pain Controlled - Review of Systems General: Reports: No Symptoms HEENT: Reports: No Symptoms Pulmonary: Reports: Shortness of Breath, Cough, Sputum Cardiovascular: Reports: No Symptoms Gastrointestinal: Reports: No Symptoms - Patient Data Vitals - Most Recent: Last Vital Signs Temp 98.1 F 01/17/19 16:00 Pulse 91 01/17/19 16:00 Resp 22 H 01/17/19 16:00 BP 121/71 01/17/19 16:00 Pulse Ox 93 L 01/17/19 16:00 Weight - Most Recent: 108 lb 4.798 oz I&O - Last 24 Hours: Intake & Output 01/17/19 01/17/19 01/17/19 06:59 14:59 22:59 Intake Total 300 120 660 Output Total 1600 900 Balance -1300 120 -240 Lab Results Last 24 Hours: Laboratory Results - last 24 hr 01/17/19 01/17/19 Range/Units 05:30 05:30 WBC 6.37 (3.98-10.04) K/mm3 RBC 4.10 (3.98-5.22) M/mm3 Hgb 11.3 (11.2-15.7) gm/dl Hct 34.3 (34.1-44.9) % MCV 83.7 (79.4-94.8) fl MCH 27.6 (25.6-32.2) pg MCHC 32.9 (32.2-35.5) g/dl RDW Std Deviation 46.2 (36.4-46.3) fL Plt Count 401 H D (182-369) K/mm3 MPV 9.3 L (9.4-12.3) fl Neut % (Auto) 75.3 H (34.0-71.1) % Lymph % (Auto) 19.2 L (19.3-51.7) % [place] % (Auto) 5.3 (4.7-12.5) % Eos % (Auto) 0 L (0.7-5.8) Baso % (Auto) 0.2 (0.1-1.2) % Neut # (Auto) 4.80 (1.56-6.13) K/mm3 Lymph # (Auto) 1.22 (1.18-3.74) K/mm3 [place] # (Auto) 0.34 (0.24-0.36) K/mm3 Eos # (Auto) 0.00 L (0.04-0.36) K/mm3 Baso # (Auto) 0.01 (0.01-0.08) K/mm3 Sodium 139 (136-145) mEq/L Potassium 4.3 (3.5-5.1) mEq/L Chloride 103 (98-107) mEq/L Carbon Dioxide 29 (21-32) mEq/L Anion Gap 11.3 (5-15) BUN 8 (7-18) mg/dL Creatinine 0.7 (0.55-1.02) mg/dL Est Cr Clr Drug Dosing 71.32 mL/min Estimated GFR (MDRD) > 60 (>60) mL/min BUN/Creatinine Ratio 11.4 L (14-18) Glucose 139 H (74-106) mg/dL Calcium 9.7 (8.5-10.1) mg/dL Magnesium 2.2 (1.8-2.4) mg/dl Total Bilirubin 0.2 (0.2-1.0) mg/dL AST 16 (15-37) U/L ALT 21 (14-59) U/L Alkaline Phosphatase 86 (46-116) U/L C-Reactive Protein 5.8 H* (<1.0) mg/dL Total Protein 7.4 (6.4-8.2) g/dl Albumin 2.9 L (3.4-5.0) g/dl Globulin 4.5 gm/dL Albumin/Globulin Ratio 0.6 L (1-2) Davi Results Last 24 Hours: Microbiology 01/16/19 12:20 Aerobic Blood Culture - Preliminary Blood - Venous - Lab Draw NO GROWTH AFTER 1 DAY Anaerobic Blood Culture - Preliminary NO GROWTH AFTER 1 DAY 01/16/19 12:03 Aerobic Blood Culture - Preliminary Blood - Venous NO GROWTH AFTER 1 DAY Anaerobic Blood Culture - Preliminary NO GROWTH AFTER 1 DAY 01/17/19 02:41 Gram Stain - Final Sputum - Expectorated Med Orders - Current: Current Medications Acetaminophen (Tylenol) 650 mg PO Q4H PRN PRN Reason: Pain (Mild 1-3)/fever Enoxaparin Sodium (Lovenox) 40 mg SUBCUT DAILY [facility] Last Admin: 01/17/19 09:00 Dose: 40 mg Guaifenesin (Mucinex) 600 mg PO BID [facility] Last Admin: 01/17/19 13:36 Dose: 600 mg Ipratropium [place] (Atrovent) 0.5 mg NEB Q6HRRT [facility] Last Admin: 01/17/19 15:01 Dose: 0.5 mg Levalbuterol HCl (Xopenex) 1.25 mg NEB Q6HRRT [facility] Last Admin: 01/17/19 15:01 Dose: 1.25 mg Levalbuterol HCl (Xopenex) 1.25 mg NEB Q2H PRN PRN Reason: for sob Last Admin: 01/17/19 11:07 Dose: 1.25 mg Levofloxacin (Levaquin) 750 mg PO Q24H [facility] Last Admin: 01/17/19 13:36 Dose: 750 mg Lorazepam (Ativan) 0.25 mg IVPUSH Q4H PRN PRN Reason: Anxiety Melatonin (Melatonin) 6 mg PO BEDTIME PRN PRN Reason: Insomnia Methylprednisolone Sodium Succinate (Solu-Medrol) 40 mg IVPUSH Q8H [facility] Last Admin: 01/17/19 13:36 Dose: 40 mg Miscellaneous Information (Remove Patch) 1 ea TRDERM DAILY [facility] Nicotine (Habitrol) 21 mg TRDERM DAILY [facility] Last Admin: 01/17/19 10:42 Dose: 21 mg Ondansetron HCl (Zofran) 4 mg IV Q4H PRN PRN Reason: Nausea/Vomiting Oxycodone HCl (Oxycodone) 5 mg PO Q4H PRN PRN Reason: Pain (moderate 4-6) Sodium Chloride (Saline Flush) 10 ml FLUSH ASDIRECTED PRN PRN Reason: Keep Vein Open Discontinued Medications Albuterol (Proventil Neb Soln) 2.5 mg NEB Q2H PRN PRN Reason: Shortness Of Breath/wheezing Last Admin: 01/17/19 05:47 Dose: 2.5 mg Albuterol/Ipratropium (Duoneb 3.0-0.5 Mg/3 Ml) 3 ml NEB ONETIME ONE Stop: 01/16/19 11:48 Last Admin: 01/16/19 11:55 Dose: 3 ml Albuterol/Ipratropium (Duoneb 3.0-0.5 Mg/3 Ml) 3 ml NEB ONETIME ONE Stop: 01/16/19 12:22 Last Admin: 01/16/19 12:50 Dose: 3 ml Albuterol/Ipratropium (Duoneb 3.0-0.5 Mg/3 Ml) 3 ml NEB Q6HRRT [facility] Last Admin: 01/17/19 08:00 Dose: 3 ml Dextrose/Sodium Chloride (Dextrose 5%-Normal Saline) 1,000 mls @ 150 mls/hr IV ASDIRECTED [facility] Last Admin: 01/16/19 12:10 Dose: 150 mls/hr Levofloxacin (Levaquin) 500 mg PO ONETIME ONE Stop: 01/16/19 13:03 Last Admin: 01/16/19 13:12 Dose: 500 mg Methylprednisolone Sodium Succinate (Solu-Medrol) 125 mg IVPUSH ONETIME ONE Stop: 01/16/19 13:03 Last Admin: 01/16/19 13:09 Dose: 125 mg - Exam Quality Assessment: Supplemental Oxygen General: Alert, Oriented HEENT: Pupils Equal, Pupils Reactive, EOMI, Mucous Membr. Moist/[place] Neck: Supple Lungs: Rhonchi. No: Normal Respiratory Effort (increased respiratory effort) Cardiovascular: Regular Rate, Regular Rhythm GI/Abdominal Exam: Normal Bowel Sounds, Soft, Non-Tender, No Organomegaly, No Distention, No Abnormal Bruit, No Mass Extremities: Normal Inspection, No Pedal Edema Skin: Warm, Dry, Intact Neurological: No New Focal Deficit Psy/Mental Status: Alert, Normal Affect, Normal Mood - Problem List Review Problem List Initiated/Reviewed/Updated: Yes - My Orders Last 24 Hours: My Active Orders 01/16/19 17:34 Oxygen Therapy [RC] PRN Up ad Vilma [RC] BID VTE/DVT Education [RC] DAILY Vital Signs [RC] Q4HR Acetaminophen [Tylenol] 650 mg PO Q4H PRN Ondansetron [Zofran] 4 mg IV Q4H PRN Sodium Chloride 0.9% [Saline Flush] 10 ml FLUSH ASDIRECTED PRN oxyCODONE 5 mg PO Q4H PRN Saline Lock Insert [OM.PC] Routine Resuscitation Status Routine 01/16/19 17:37 Melatonin 6 mg PO BEDTIME PRN 01/16/19 21:00 methylPREDNISolone Sod Succ [Solu-MEDROL] 40 mg IVPUSH Q8H 01/16/19 Dinner Regular Diet [DIET] 01/17/19 02:41 CULTURE SPUTUM + SMEAR [RM] Stat 01/17/19 09:00 Enoxaparin [Lovenox] 40 mg SUBCUT DAILY 01/17/19 10:30 Nicotine [Habitrol] 21 mg TRDERM DAILY 01/17/19 10:41 Levalbuterol HCl [Xopenex] 1.25 mg NEB Q2H PRN 01/17/19 10:42 RT Pre-Treatment Assessment [RC] Click to Edit 01/17/19 12:07 LORazepam [Ativan] 0.25 mg IVPUSH Q4H PRN 01/17/19 12:15 guaiFENesin [Mucinex] 600 mg PO BID 01/17/19 13:00 levoFLOXacin [Levaquin] 750 mg PO Q24H 01/17/19 15:00 Ipratropium [Atrovent] 0.5 mg NEB Q6HRRT Levalbuterol HCl [Xopenex] 1.25 mg NEB Q6HRRT 01/18/19 05:11 C-REACTIVE PROTEIN [CHEM] AM CBC WITH AUTO DIFF [HEME] AM COMPREHENSIVE METABOLIC PN,CMP [CHEM] AM MAGNESIUM [CHEM] AM 01/18/19 09:00 Remove Patch 1 ea TRDERM DAILY 01/19/19 05:11 C-REACTIVE PROTEIN [CHEM] AM CBC WITH AUTO DIFF [HEME] AM COMPREHENSIVE METABOLIC PN,CMP [CHEM] AM MAGNESIUM [CHEM] AM - Plan Plan:: Assessment * 53-year-old female with metastatic lung cancer admitted for complications of her metastatic lung cancer * Pneumonia versus postobstructive pneumonia versus COPD exacerbation * 40 pound weight loss in the last few months. Plan * Refer to [facility] floor for observation * Levaquin 500 mg given in the ER. We will continue with Levaquin 750 mg daily starting tomorrow * Solu-Medrol 125 mg IV given in ER. Continue 40 mg every 8 hours and may switch to oral tomorrow. * FiO2 to keep pulse ox greater than 92%. * switch to Xopenex * Lorazepam 0.25 mg IV when necessary anxiety * Dietary consult * VTE prophylaxis with enoxaparin * CODE STATUS full code * anticipate discharge with oxygen and follow-up with her wedding photographer and oncologist.
[2019-01-17] MEDS ORDERED: NICOTINE POLACRILEX 2 MG PO PRN (19:53)
[2019-01-18] MEDS: Levalbuterol HCl 1.25 MG/0.5 ML Neb NEB SCH ×4 (02:22→21:00)
[2019-01-18] MEDS: Ipratropium 0.02% 0.5 MG/2.5 ML Neb Soln NEB SCH ×4 (02:22→21:00)
[2019-01-18] MEDS: methylPREDNISolone Sodium Succinate 40 MG/1 ML SDV IVPUSH SCH (04:15)
[2019-01-18] MEDS: Nicotine 21 MG/24 Hr Patch TRDERM SCH (08:47)
[2019-01-18] MEDS: Enoxaparin 40 MG/0.4 ML Syringe SUBCUT SCH (08:53)
[2019-01-18] MEDS: guaiFENesin 600 MG Tab.ER PO SCH ×2 (08:53→20:33)
--- NOTE | 2019-01-18 11:42 | PCM.PN ---
- General Info Date of Service: 01/18/19 - Review of Systems Systems Review Comment:: Evaluated by me at bedside As per nursing patient had an ok night, tolerated diet, ambulating to and from restroom. As per patient she slept ok, is tolerating diet, denies any nausea or abdominal discomfort Is still having significant shortness of breath and coughing spells Had a BM today - Patient Data Vitals - Most Recent: Last Vital Signs Temp 36.5 C 01/18/19 03:31 Pulse 94 01/18/19 03:31 Resp 18 01/18/19 03:31 BP 106/75 01/18/19 03:31 Pulse Ox 91 L 01/18/19 08:36 Weight - Most Recent: 48.035 kg Lab Results Last 24 Hours: Laboratory Results - last 24 hr 01/18/19 01/18/19 Range/Units 05:22 05:22 WBC 14.09 H (3.98-10.04) K/mm3 RBC 4.30 (3.98-5.22) M/mm3 Hgb 11.4 (11.2-15.7) gm/dl Hct 36.2 (34.1-44.9) % MCV 84.2 (79.4-94.8) fl MCH 26.5 (25.6-32.2) pg MCHC 31.5 L (32.2-35.5) g/dl RDW Std Deviation 46.6 H (36.4-46.3) fL Plt Count 494 H D (182-369) K/mm3 MPV 9.6 (9.4-12.3) fl Neut % (Auto) 90.6 H (34.0-71.1) % Lymph % (Auto) 7.2 L (19.3-51.7) % Early % (Auto) 1.8 L (4.7-12.5) % Eos % (Auto) 0 L (0.7-5.8) Baso % (Auto) 0.1 (0.1-1.2) % Neut # (Auto) 12.77 H (1.56-6.13) K/mm3 Lymph # (Auto) 1.01 L (1.18-3.74) K/mm3 Early # (Auto) 0.26 (0.24-0.36) K/mm3 Eos # (Auto) 0.00 L (0.04-0.36) K/mm3 Baso # (Auto) 0.01 (0.01-0.08) K/mm3 Manual Slide Review Normal smear Sodium 137 (136-145) mEq/L Potassium 4.2 (3.5-5.1) mEq/L Chloride 102 (98-107) mEq/L Carbon Dioxide 28 (21-32) mEq/L Anion Gap 11.2 (5-15) BUN 18 (7-18) mg/dL Creatinine 0.7 (0.55-1.02) mg/dL Est Cr Clr Drug Dosing 69.67 mL/min Estimated GFR (MDRD) > 60 (>60) mL/min BUN/Creatinine Ratio 25.7 H (14-18) Glucose 139 H (74-106) mg/dL Calcium 9.8 (8.5-10.1) mg/dL Magnesium 2.3 (1.8-2.4) mg/dl Total Bilirubin 0.1 L (0.2-1.0) mg/dL AST 15 (15-37) U/L ALT 28 (14-59) U/L Alkaline Phosphatase 83 (46-116) U/L C-Reactive Protein 1.9 H* (<1.0) mg/dL Total Protein 7.3 (6.4-8.2) g/dl Albumin 2.9 L (3.4-5.0) g/dl Globulin 4.4 gm/dL Albumin/Globulin Ratio 0.7 L (1-2) - Exam General: Alert, Oriented, Cooperative, Moderate Distress, Other (cachectic with bitemporal wasting) HEENT: Pupils Equal, Pupils Reactive. No: Scleral Icterus Neck: Supple, Trachea Midline, No JVD, No Thyromegaly. No: Lymphadenopathy Lungs: Decreased Breath Sounds, Rales, Rhonchi, Wheezing, Other (minimal air entry in R lung) Cardiovascular: Regular Rate, Regular Rhythm. No: Murmurs, Gallops, Rubs GI/Abdominal Exam: Normal Bowel Sounds, Soft, Non-Tender, No Distention, No Mass Extremities: Normal Inspection, No Pedal Edema Skin: Warm, Intact Neurological: No New Focal Deficit Psy/Mental Status: Alert - Problem List & Annotations (1) Primary lung cancer of unknown cell type SNOMED Code(s): 42459013 Code(s): C34.90 - MALIGNANT NEOPLASM OF UNSP PART OF UNSP BRONCHUS OR LUNG Status: Acute Current Visit: Yes (2) Hypoxemia SNOMED Code(s): 799561554 Code(s): R09.02 - HYPOXEMIA Status: Acute Current Visit: Yes (3) Pneumonia SNOMED Code(s): 598021811 Code(s): J18.9 - PNEUMONIA, UNSPECIFIED ORGANISM Status: Acute Current Visit: Yes Qualifiers: Lung location: upper lobe of lung (4) Cachexia SNOMED Code(s): 734818704 Code(s): R64 - CACHEXIA Status: Acute Current Visit: Yes (5) Severe muscle deconditioning SNOMED Code(s): 379771259 Code(s): R29.898 - OTH SYMPTOMS AND SIGNS INVOLVING THE MUSCULOSKELETAL SYSTEM Status: Acute Current Visit: Yes (6) Malnutrition SNOMED Code(s): 75381891 Code(s): E46 - UNSPECIFIED PROTEIN-CALORIE MALNUTRITION Status: Acute Current Visit: Yes (7) Ex-smoker SNOMED Code(s): 6285699 Code(s): Z87.891 - PERSONAL HISTORY OF NICOTINE DEPENDENCE Status: Acute Current Visit: Yes - My Orders Last 24 Hours: My Active Orders 01/19/19 09:00 predniSONE 40 mg PO DAILY - Plan Plan:: Assessment * 53-year-old female with metastatic lung cancer admitted for complications of her metastatic lung cancer * Pneumonia versus postobstructive pneumonia versus COPD exacerbation * 40 pound weight loss in the last few months. Plan * Refer to [facility] floor for observation * Levaquin 500 mg given in the ER. We will continue with Levaquin 750 mg daily starting tomorrow * Solu-Medrol 125 mg IV given in ER. Continue 40 mg every 8 hours and may switch to oral tomorrow. * FiO2 to keep pulse ox greater than 92%. 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
[2019-01-18] MEDS: Levofloxacin 750 MG Tab PO SCH (12:51)
[2019-01-18] MEDS: Benzonatate 100 MG Cap PO SCH ×2 (12:57→20:33)
[2019-01-18] MEDS ORDERED: FLU Vacc QS2019-20(6MOS+)/PF 60 MCG/0.5 ML SYRINGE IM ONE (15:30)
[2019-01-19] MEDS: Levalbuterol HCl 1.25 MG/0.5 ML Neb NEB SCH ×4 (02:18→19:59)
[2019-01-19] MEDS: Ipratropium 0.02% 0.5 MG/2.5 ML Neb Soln NEB SCH ×4 (02:19→19:59)
[2019-01-19] MEDS ORDERED: NICOTINE POLACRILEX 2 MG PO PRN (08:39)
[2019-01-19] MEDS ORDERED: predniSONE 20 MG Tab PO SCH (09:00)
[2019-01-19] MEDS: guaiFENesin 600 MG Tab.ER PO SCH ×2 (09:43→20:19)
[2019-01-19] MEDS: Benzonatate 100 MG Cap PO SCH ×3 (09:43→20:18)
[2019-01-19] MEDS: Nicotine 21 MG/24 Hr Patch TRDERM SCH (09:43)
[2019-01-19] MEDS: Enoxaparin 40 MG/0.4 ML Syringe SUBCUT SCH (09:43)
[2019-01-19] MEDS ORDERED: Gadobenate Dimeglumine 529 MG/ML 15 ML SDV IVPUSH ONE (11:03)
[2019-01-19] MEDS ORDERED: Sodium Chloride 0.9% 10 ML Syringe FLUSH SCH (11:15)
[2019-01-19] MEDS ORDERED: diphenhydrAMINE 50 MG/ML SDV IVPUSH ONE (12:30)
[2019-01-19] MEDS: Levofloxacin 750 MG Tab PO SCH (12:53)
[2019-01-19] MEDS: Nystatin Susp 100,000 Unit/ML 5 ML Oral Syringe PO SCH ×3 (12:53→20:20)
[2019-01-19] MEDS: Morphine 2 MG/ML Syringe IVPUSH PRN ×2 (15:28→15:54)
--- NOTE | 2019-01-19 16:26 | MR ---
MRI brain (without and with intravenous contrast) Technique: T1 sagittal; T2, T2 FLAIR, T1 and diffusion axial; T2 gradient echo and T1 weighted coronal; post contrast T1 axial, coronal and sagittal images were obtained. Comparison: No prior intracranial imaging is available. Findings: CSF collection is seen within the left side of the posterior fossa. This presumably represents previous resection of a portion of the left cerebellar hemisphere. Small areas of increased signal are scattered within the periventricular white matter and subcortical white matter which are most likely is due to small vessel ischemic demyelination change. There is no acute diffusion abnormalities being seen. Ventricles are moderately dilated. Sulci over the convexities are less dilated. There are no areas of abnormal enhancement. Impression: 1. Central atrophy which is possibly due to previous chemotherapy. Portion of the left cerebellar hemisphere is missing which most likely represents previous resection. Please correlate. If no previous resection is present this represents an arachnoid cyst. 2. No acute diffusion abnormalities or abnormal enhancement is seen. Nothing is seen to indicate metastatic disease. 3. Increased signal within the periventricular and subcortical white matter most likely representing small vessel ischemic demyelination change. Diagnostic code #3
== END 2019-01-19 20:42 | disposition home or self-care (01) | DRG 190 ==
LOC: JD.ED 11:20 → JD.MS 13:26
PROVIDERS: ADMIT Family Medicine; ATTEND Family Medicine
DX: C34.92 Malignant neoplasm of unspecified part of left bronchus or lung (principal); C77.0 Secondary and unspecified malignant neoplasm of lymph nodes of head, face and neck; J44.1 Chronic obstructive pulmonary disease with (acute) exacerbation; R53.1 Weakness; R06.02 Shortness of breath; R05 Cough; J18.9 Pneumonia, unspecified organism; C34.91 Malignant neoplasm of unspecified part of right bronchus or lung; R64 Cachexia; E46 Unspecified protein-calorie malnutrition; J44.0 Chronic obstructive pulmonary disease with (acute) lower respiratory infection; F17.210 Nicotine dependence, cigarettes, uncomplicated; R29.898 Other symptoms and signs involving the musculoskeletal system; H54.7 Unspecified visual loss; Z79.52 Long term (current) use of systemic steroids; Z79.899 Other long term (current) drug therapy; Z85.118 Personal history of other malignant neoplasm of bronchus and lung; Z90.710 Acquired absence of both cervix and uterus; Z68.1 Body mass index [BMI] 19.9 or less, adult; Z23 Encounter for immunization
CPT/HCPCS: 36415; 71045; 80053; 83605; 83735; 83880; 84484; 85007; 85027; 85610; 85730; 86140; 87040 ×2; 93005; 94640 ×2; 96361; 96374; 99285; A9270; J2930; J7042; 70553; 70553-26; 85025; 87070; 87106; 87205; 90686; 93010; 94668; 94761; A9577; G0008; J1200; J1650; J2060; J2270; J2920; J7612-GY; J7620-GY

== ENCOUNTER 2019-02-08 15:18 | Emergency (ER) | payer MEDICARE, MEDICAID ==
--- NOTE | 2019-02-08 16:14 | EDM.PDOC ---
<Shelby Lai - Last Filed: 02/08/19 16:57> ED HPI GENERAL MEDICAL PROBLEM - General Chief Complaint: Abdominal Pain Stated Complaint: CONSTIPATION Time Seen by Provider: 02/08/19 15:53 Source of Information: Reports: Patient History Limitations: Reports: No Limitations - History of Present Illness INITIAL COMMENTS - FREE TEXT/NARRATIVE: 53 year old female who presents to the ED with complaints of constipation. Pt has a diagnosis of lung cancer and had her first chemo treatment 8 days ago. Pt states that prior to chemo she has not had issues with her bowels and had regular daily bowel movements. Pt states that she has been taking occasional stool softeners and milk of mag. Last night she gave herself a fleets enema and did not have results. Patient drank 1/2 bottle of mag citrate at about 1100 today and still has not had a bowel movement. She states that there is liquid stool leaking out of her rectum and that it is sore, but she is not able to have a bm. Appetite has been good and has been eating up until today. Left Lower Abdomen Pain Score (Numeric/FACES): 4 - Related Data Allergies Allergy/AdvReac Type Severity Reaction Status Date / Time No Known Allergies Allergy Verified 01/16/19 11:40 Home Meds: Home Meds Albuterol [Proventil HFA] 2 puff INH Q4H PRN 01/16/19 [History] Nicotine Polacrilex [Nicotine Lozenge] 2 mg PO Q2HR PRN 01/17/19 [History] Albuterol/Ipratropium [DuoNeb 3.0-0.5 MG/3 ML] 1 unit INH Q6H 01/18/19 [History] Cyclobenzaprine [Flexeril] 10 mg PO TID PRN 01/18/19 [History] DULoxetine [Cymbalta] 60 mg PO DAILY 01/18/19 [History] Fluticasone/Umeclidin/Vilanter [Trelegy Ellipta 100-62.5-25] 1 puff INH DAILY [History] Nicotine [Nicotine Patch] 21 mg TD DAILY 01/18/19 [History] Omeprazole 20 mg PO DAILY 01/18/19 [History] Pregabalin [Lyrica] 200 mg PO BID 01/18/19 [History] oxyCODONE HCl/Acetaminophen [Oxycodone-Acetaminophen 5-325] 1 - 2 tab PO Q6H PRN 01/18/19 [History] traZODone HCl [Trazodone HCl] 50 mg PO BEDTIME 01/18/19 [History] Acetylcysteine [Mucomyst 20%] 1,000 mg INH Q6H 3 Days #12 vial 01/19/19 [Rx] Benzonatate [Tessalon Perle] 200 mg PO Q8HR 3 Days #9 capsule 01/19/19 [Rx] Ipratropium [Atrovent] 0.5 mg NEB Q6HRRT 3 Days #12 neb 01/19/19 [Rx] Melatonin 6 mg PO BEDTIME PRN 30 Days #30 tablet 01/19/19 [Rx] Nicotine [Habitrol] 21 mg TRDERM DAILY 30 Days #30 patch 01/19/19 [Rx] Nystatin [Nystatin Oral Syringe] 500,000 unit PO QID 10 Days #40 syringe [Rx] Sodium Chloride for Inhalation [Hyper-Jesus Alberto] 4 ml IH Q6HR 5 Days #20 vial.neb [Rx] guaiFENesin [Mucinex] 600 mg PO BID 5 Days #10 tab.er 01/19/19 [Rx] levoFLOXacin [Levaquin] 750 mg PO Q24H 4 Days #4 tablet 01/19/19 [Rx] methylPREDNISolone [Medrol] 84 mg PO DAILY 6 Days #1 dospk 01/19/19 [Rx] Past Medical History HEENT History: Reports: Impaired Vision Other HEENT History: wears eyeglasses. Respiratory History: Reports: COPD, Other (See Below) Other Respiratory History: lung cancer. 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 Immunologic History: Reports: None Oncologic (Cancer) History: Reports: Lung, Metastatic Other Oncologic History: possibly metastatic to lymphnode. - Infectious Disease History Infectious Disease History: Reports: Chicken Pox - Past Surgical History Female Surgical History: Reports: Section, Hysterectomy Musculoskeletal Surgical History: Reports: Other (See Below) Other Musculoskeletal Surgeries/Procedures:: rods to lower back, neck fusion. Social & Family History - Family History Family Medical History: Noncontributory - Tobacco Use Smoking Status *Q: Former Smoker Used Tobacco, but Quit: Yes Month/Year Tobacco Last Used: jan 2019 - Caffeine Use Caffeine Use: Reports: Coffee - Recreational Drug Use Recreational Drug Use: No - Living Situation & Occupation Living situation: Reports: Occupation: Disabled ED ROS GENERAL - Review of Systems Review Of Systems: See Below Constitutional: Reports: No Symptoms HEENT: Reports: No Symptoms Respiratory: Reports: Shortness of Breath, Wheezing, Cough, Sputum, Other (pt has lung cancer) Cardiovascular: Reports: No Symptoms Endocrine: Reports: No Symptoms GI/Abdominal: Reports: Constipation, Distension, Stool Incontinence. Denies: Black Stool, Bloody Stool, Diarrhea, Nausea, Vomiting Musculoskeletal: Reports: No Symptoms Skin: Reports: No Symptoms Neurological: Reports: No Symptoms Psychiatric: Reports: No Symptoms Hematologic/Lymphatic: Reports: No Symptoms Immunologic: Reports: No Symptoms ED EXAM, GI/ABD - Physical Exam Exam: See Below Exam Limited By: No Limitations General Appearance: Alert, WD/WN, Mild Distress, Thin Ears: Normal External Exam Nose: Normal Inspection, Normal Mucosa, No Blood Throat/Mouth: Normal Inspection, Normal Lips, Normal Voice, No Airway Compromise Head: Normocephalic, Sinus Tenderness Neck: Normal Inspection, Supple, Non-Tender Respiratory/Chest: Chest Non-Tender, Decreased Breath Sounds, Rales, Prolonged Expiration Cardiovascular: Normal Peripheral Pulses, Regular Rate, Rhythm, No Edema, No Murmur GI/Abdominal Exam: Tender, Abnormal Bowel Sounds (bowel sounds hyperactive) (Female) Exam: Deferred Rectal (Female) Exam: Deferred Back Exam: Normal Inspection Extremities: Normal Inspection, No Pedal Edema, Normal Capillary Refill Neurological: Alert, Oriented, Normal Cognition, No Motor/Sensory Deficits Psychiatric: Normal Affect, Normal Mood Skin Exam: Warm, Dry, Intact, Normal Color, No Rash Lymphatic: No Adenopathy Course - Vital Signs Last Recorded V/S: Last Vital Signs Temp 98.3 F 02/08/19 15:44 Pulse 118 H 02/08/19 15:44 Resp 20 02/08/19 15:44 BP 110/90 02/08/19 15:44 Pulse Ox 100 02/08/19 15:44 - Orders/Labs/Meds Meds: Medications Discontinued Medications Generic Name Dose Route Start Last Admin Trade Name Freq PRN Reason Stop Dose Admin Lidocaine HCl Confirm 02/08/19 17:13 02/08/19 17:52 Xylocaine 2% Jelly Administered 02/08/19 17:14 Not Given Dose 10 ml .ROUTE .STK-MED ONE Lidocaine HCl 10 ml 02/08/19 17:51 02/08/19 17:52 Xylocaine 2% Jelly MUCMEM 02/08/19 17:52 10 ml ONETIME ONE Administration - Re-Assessments/Exams Free Text/Narrative Re-Assessment/Exam: 02/08/19 16:06 I ordered a flatplate of the abdomen on this patient. Free Text/Narrative Re-Assessment/Exam: 02/08/19 16:59 Appears to be a moderate amount of stool in the rectal vault. Digital exam performed by me. A large amount of soft stool noted in the rectum. I attempted to disimpact the stool, but patient is not able to tolerate the disimpaction due to discomfort. I will order a soap suds enema. Departure - Departure Disposition: Home, Self-Care 01 Clinical Impression: Constipation Qualifiers: Constipation type: unspecified constipation type Qualified Code(s): K59.00 - Constipation, unspecified - Discharge Information Instructions: Constipation, Adult Referrals: Chiquita Fernandez NP [Primary Care Provider] - Forms: ED Department Discharge Additional Instructions: Drink plenty of water to maintain hydration, start taking a stool softener daily , MiraLAX once or twice daily as needed. Try to eat high-fiber foods, fruits and vegetables as best you can. Follow-up clinic as needed, return to ED as needed if symptoms worsening in any way. <Tyler Xavier - Last Filed: 02/16/19 07:38> Course - Re-Assessments/Exams Free Text/Narrative Re-Assessment/Exam: 02/16/19 07:37 Initial hx and exam was done by Shelby COONEY student. I agree with hx and exam as documented. I have also interviewed and examined patient. Departure - Departure Time of Disposition: 07:38 Condition: Fair
--- NOTE | 2019-02-08 17:00 | CR ---
Abdomen: Supine view of the abdomen was obtained. Comparison: No prior abdominal x-ray, previous CT abdomen and pelvis exam of 08/23/17. Findings: Previous lumbar spine surgery is noted. Slightly prominent gas-filled bowel is noted within the upper abdomen. Calcifications are noted within the pelvis which are compatible with phleboliths. No discrete soft tissue finding is seen. Impression: 1. Slightly prominent gas-filled bowel within the upper abdomen. Mild localized ileus is possible. 2. Previous lumbar spine surgery. 3. Nothing acute is otherwise seen. Diagnostic code #3
[2019-02-08] MEDS ORDERED: Lidocaine 2% Jelly 10 ML Urojet ONE (17:13)
[2019-02-08] MEDS ORDERED: Lidocaine 2% Jelly 10 ML Urojet MUCMEM ONE (17:51)
== END 2019-02-08 19:01 | disposition home or self-care (01) ==
LOC: JD.ED 15:18
DX: K59.00 Constipation, unspecified (principal); J44.9 Chronic obstructive pulmonary disease, unspecified; C34.90 Malignant neoplasm of unspecified part of unspecified bronchus or lung; K27.9 Peptic ulcer, site unspecified, unspecified as acute or chronic, without hemorrhage or perforation; Z79.899 Other long term (current) drug therapy; Z79.51 Long term (current) use of inhaled steroids; Z87.891 Personal history of nicotine dependence
CPT/HCPCS: 74018; 74018-26; 99284-25

== ENCOUNTER 2019-05-13 16:42 | Emergency (ER) | payer MEDICARE, MEDICAID ==
--- NOTE | 2019-05-13 17:13 | EDM.PDOC ---
ED HPI GENERAL MEDICAL PROBLEM - General Chief Complaint: Abdominal Pain Stated Complaint: CONSTIPATED Time Seen by Provider: 05/13/19 16:59 Source of Information: Reports: Patient, Family, RN Notes Reviewed - History of Present Illness INITIAL COMMENTS - FREE TEXT/NARRATIVE: 54-year-old female comes in with abdominal pain and constipation concerns. She has not had a BM for about 6 days. Have history of cancer, does take pain pills as needed, has had one Percocet today. She does deal with chronic constipation, not been eating well today but drinking plenty of water. Has taken alot of stool softeners, did also take a Dulcolax not too long ago and now here in the ED while waiting to be seen "had a large BM". However she still is having a lot of lower mid abdominal cramping. There has been no nausea or vomiting today. Abdomen Pain Score (Numeric/FACES): 8 - Related Data Allergies Allergy/AdvReac Type Severity Reaction Status Date / Time No Known Allergies Allergy Verified 01/16/19 11:40 Home Meds: Home Meds Albuterol [Proventil HFA] 2 puff INH Q4H PRN 01/16/19 [History] Nicotine Polacrilex [Nicotine Lozenge] 2 mg PO Q2HR PRN 01/17/19 [History] Albuterol/Ipratropium [DuoNeb 3.0-0.5 MG/3 ML] 1 unit INH Q6H 01/18/19 [History] Cyclobenzaprine [Flexeril] 10 mg PO TID PRN 01/18/19 [History] DULoxetine [Cymbalta] 60 mg PO DAILY 01/18/19 [History] Fluticasone/Umeclidin/Vilanter [Trelegy Ellipta 100-62.5-25] 1 puff INH DAILY [History] Nicotine [Nicotine Patch] 21 mg TD DAILY 01/18/19 [History] Omeprazole 20 mg PO DAILY 01/18/19 [History] Pregabalin [Lyrica] 200 mg PO BID 01/18/19 [History] oxyCODONE HCl/Acetaminophen [Oxycodone-Acetaminophen 5-325] 1 - 2 tab PO Q6H PRN 01/18/19 [History] traZODone HCl [Trazodone HCl] 50 mg PO BEDTIME 01/18/19 [History] Acetylcysteine [Mucomyst 20%] 1,000 mg INH Q6H 3 Days #12 vial 01/19/19 [Rx] Benzonatate [Tessalon Perle] 200 mg PO Q8HR 3 Days #9 capsule 01/19/19 [Rx] Ipratropium [Atrovent] 0.5 mg NEB Q6HRRT 3 Days #12 neb 01/19/19 [Rx] Melatonin 6 mg PO BEDTIME PRN 30 Days #30 tablet 01/19/19 [Rx] Nicotine [Habitrol] 21 mg TRDERM DAILY 30 Days #30 patch 01/19/19 [Rx] Nystatin [Nystatin Oral Syringe] 500,000 unit PO QID 10 Days #40 syringe [Rx] Sodium Chloride for Inhalation [Hyper-Jesus Alberto] 4 ml IH Q6HR 5 Days #20 vial.neb [Rx] guaiFENesin [Mucinex] 600 mg PO BID 5 Days #10 tab.er 01/19/19 [Rx] levoFLOXacin [Levaquin] 750 mg PO Q24H 4 Days #4 tablet 01/19/19 [Rx] methylPREDNISolone [Medrol] 84 mg PO DAILY 6 Days #1 dospk 01/19/19 [Rx] Past Medical History HEENT History: Reports: Impaired Vision Other HEENT History: wears eyeglasses. Respiratory History: Reports: COPD, Other (See Below) Other Respiratory History: lung cancer. 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 Immunologic History: Reports: None Oncologic (Cancer) History: Reports: Lung, Metastatic Other Oncologic History: possibly metastatic to lymphnode. - Infectious Disease History Infectious Disease History: Reports: Chicken Pox - Past Surgical History Female Surgical History: Reports: Section, Hysterectomy Musculoskeletal Surgical History: Reports: Other (See Below) Other Musculoskeletal Surgeries/Procedures:: rods to lower back, neck fusion. Social & Family History - Family History Family Medical History: Noncontributory - Tobacco Use Smoking Status *Q: Former Smoker Used Tobacco, but Quit: Yes Month/Year Tobacco Last Used: oct - Caffeine Use Caffeine Use: Reports: Coffee, Soda - Recreational Drug Use Recreational Drug Use: No - Living Situation & Occupation Living situation: Reports: Occupation: Disabled ED ROS GENERAL - Review of Systems Review Of Systems: See Below Constitutional: Denies: Fever, Chills, Diaphoresis HEENT: Denies: Throat Pain Respiratory: Denies: Shortness of Breath Cardiovascular: Denies: Chest Pain GI/Abdominal: Reports: Abdominal Pain, Constipation. Denies: Hematochezia, Melena Musculoskeletal: Denies: Shoulder Pain, Arm Pain Skin: Denies: Rash Neurological: Reports: No Symptoms ED EXAM, GI/ABD - Physical Exam Exam: See Below General Appearance: Alert, No Apparent Distress Throat/Mouth: Normal Inspection, Normal Oropharynx Head: Atraumatic Neck: Supple, Full Range of Motion, Other (No JVD) Cardiovascular: Tachycardia GI/Abdominal Exam: Soft, Non-Tender. No: Guarding Extremities: Normal Inspection, Normal Range of Motion. No: Pedal Edema, Leg Pain, Redness Neurological: Alert, Oriented, No Motor/Sensory Deficits Skin Exam: Warm, Dry, Normal Color Course - Vital Signs Last Recorded V/S: Last Vital Signs Temp 97.4 F 05/13/19 16:53 Pulse 113 H 05/13/19 16:53 Resp 20 05/13/19 16:53 BP 101/82 05/13/19 16:53 Pulse Ox 100 05/13/19 16:53 - Orders/Labs/Meds Meds: Medications Discontinued Medications Generic Name Dose Route Start Last Admin Trade Name Freq PRN Reason Stop Dose Admin Dicyclomine HCl 10 mg 05/13/19 17:23 05/13/19 17:38 Bentyl PO 05/13/19 17:24 10 mg ONETIME ONE Administration Ondansetron HCl 4 mg 05/13/19 17:23 05/13/19 17:38 Zofran Odt PO 05/13/19 17:24 4 mg ONETIME ONE Administration Departure - Departure Time of Disposition: 18:57 Disposition: Home, Self-Care 01 Condition: Fair Clinical Impression: Diarrhea Qualifiers: Diarrhea type: unspecified type Qualified Code(s): R19.7 - Diarrhea, unspecified Abdominal pain Qualifiers: Abdominal location: generalized Qualified Code(s): R10.84 - Generalized abdominal pain Constipation Qualifiers: Constipation type: unspecified constipation type Qualified Code(s): K59.00 - Constipation, unspecified - Discharge Information Instructions: Constipation, Adult, Abdominal Pain, Adult, [id number], Diarrhea, Adult, [id number] Referrals: Chiquita Fernandez NP [Primary Care Provider] - Forms: ED Department Discharge Additional Instructions: X-rays of the abdomen do not show any sign of bowel obstruction but do show some signs of inflammation which correlates with the cramping and with the diarrhea that you are now having. Start probioitic twice daily and continue that for 5 days and thereafter as needed. I would not recomend further duclolax for the next 3 days, no further stool softener for the next 24 hours. Clear liquids until morning, than very careful bland diet as tolerated. Follow- up clinic as needed, return to ED as needed if symptoms worsening in any way. Sepsis Event Note - Evaluation Sepsis Screening Result: No Definite Risk - Focused Exam Date Exam was Performed: 05/21/19 Time Exam was Performed: 20:18
[2019-05-13] MEDS ORDERED: Ondansetron 4 MG Tab.DIS PO ONE (17:23)
[2019-05-13] MEDS ORDERED: Dicyclomine 10 MG Cap PO ONE (17:23)
--- NOTE | 2019-05-13 18:40 | CR ---
Abdomen: Supine and upright views the abdomen were obtained. Slightly dilated gas-filled colon is seen. Rectal gas is also noted. Fluid is seen within the colon. Previous lumbar spine surgery is noted. No free air is seen. No additional abnormality is seen. Impression: 1. Slightly prominent gas within colon which does not appear to be obstructive. Fluid also noted within the colon. Findings raise the possibility of change from colitis or other enteritis. 2. No free air is seen. No other acute abnormality is appreciated. Diagnostic code #3 Study was dictated in [place] Standard Time
== END 2019-05-13 19:11 | disposition home or self-care (01) ==
LOC: JD.ED 16:42
DX: R19.7 Diarrhea, unspecified (principal); R10.84 Generalized abdominal pain; K59.00 Constipation, unspecified; J44.9 Chronic obstructive pulmonary disease, unspecified; Z79.51 Long term (current) use of inhaled steroids; Z85.118 Personal history of other malignant neoplasm of bronchus and lung; Z87.891 Personal history of nicotine dependence
CPT/HCPCS: 74019; 99284; A9270; 99283

== ENCOUNTER 2019-08-24 11:55 | Emergency (ER) | payer MEDICARE, MEDICAID ==
--- NOTE | 2019-08-24 12:42 | EDM.PDOC ---
ED HPI GENERAL MEDICAL PROBLEM - General Chief Complaint: Abdominal Pain Stated Complaint: CONSTIPATION Time Seen by Provider: 08/24/19 12:19 Source of Information: Reports: Patient History Limitations: Reports: No Limitations - History of Present Illness INITIAL COMMENTS - FREE TEXT/NARRATIVE: The patient presents with constipation. She has not had a bowel movement for about 6 days. She has no nausea or vomiting. She lung cancer and she had radiation treatment a few weeks ago. She has not had chemo yet. Constipation has been a problem for her. She has no fever, chills, or cough. She has chronic shortness of breath and she is on oxygen. Onset: Gradual Duration: Day(s): Location: Reports: Abdomen Severity: Moderate Improves with: Reports: None Worsens with: Reports: None Associated Symptoms: Reports: Shortness of Breath. Denies: Chest Pain, Cough, Fever/Chills, Headaches, Nausea/Vomiting Rectal Pain Score (Numeric/FACES): 8 - Related Data Allergies Allergy/AdvReac Type Severity Reaction Status Date / Time No Known Allergies Allergy Verified 01/16/19 11:40 Home Meds: Home Meds Albuterol [Proventil HFA] 2 puff INH Q4H PRN 01/16/19 [History] Nicotine Polacrilex [Nicotine Lozenge] 2 mg PO Q2HR PRN 01/17/19 [History] Albuterol/Ipratropium [DuoNeb 3.0-0.5 MG/3 ML] 1 unit INH Q6H 01/18/19 [History] Cyclobenzaprine [Flexeril] 10 mg PO TID PRN 01/18/19 [History] DULoxetine [Cymbalta] 60 mg PO DAILY 01/18/19 [History] Fluticasone/Umeclidin/Vilanter [Trelegy Ellipta 100-62.5-25] 1 puff INH DAILY [History] Nicotine [Nicotine Patch] 21 mg TD DAILY 01/18/19 [History] Omeprazole 20 mg PO DAILY 01/18/19 [History] Pregabalin [Lyrica] 200 mg PO BID 01/18/19 [History] oxyCODONE HCl/Acetaminophen [Oxycodone-Acetaminophen 5-325] 1 - 2 tab PO Q6H PRN 01/18/19 [History] traZODone HCl [Trazodone HCl] 50 mg PO BEDTIME 01/18/19 [History] Acetylcysteine [Mucomyst 20%] 1,000 mg INH Q6H 3 Days #12 vial 01/19/19 [Rx] Benzonatate [Tessalon Perle] 200 mg PO Q8HR 3 Days #9 capsule 01/19/19 [Rx] Ipratropium [Atrovent] 0.5 mg NEB Q6HRRT 3 Days #12 neb 01/19/19 [Rx] Melatonin 6 mg PO BEDTIME PRN 30 Days #30 tablet 01/19/19 [Rx] Nicotine [Habitrol] 21 mg TRDERM DAILY 30 Days #30 patch 01/19/19 [Rx] Nystatin [Nystatin Oral Syringe] 500,000 unit PO QID 10 Days #40 syringe [Rx] Sodium Chloride for Inhalation [Hyper-Jesus Alberto] 4 ml IH Q6HR 5 Days #20 vial.neb [Rx] guaiFENesin [Mucinex] 600 mg PO BID 5 Days #10 tab.er 01/19/19 [Rx] methylPREDNISolone [Medrol] 84 mg PO DAILY 6 Days #1 dospk 01/19/19 [Rx] Metoclopramide [Reglan] 5 mg PO DAILY 07/12/19 [History] Sertraline [Zoloft] 50 mg PO DAILY 07/12/19 [History] Past Medical History HEENT History: Reports: Impaired Vision Other HEENT History: wears eyeglasses. Respiratory History: Reports: COPD, Other (See Below) Other Respiratory History: lung cancer. 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 Psychiatric History: Reports: Anxiety Immunologic History: Reports: None Oncologic (Cancer) History: Reports: Lung, Metastatic Other Oncologic History: possibly metastatic to lymphnode. - Infectious Disease History Infectious Disease History: Reports: Chicken Pox - Past Surgical History Female Surgical History: Reports: Section, Hysterectomy Musculoskeletal Surgical History: Reports: Other (See Below) Other Musculoskeletal Surgeries/Procedures:: rods to lower back, neck fusion. Social & Family History - Family History Family Medical History: Noncontributory - Tobacco Use Smoking Status *Q: Former Smoker Used Tobacco, but Quit: Yes Month/Year Tobacco Last Used: 2019 - Caffeine Use Caffeine Use: Reports: None, Coffee - Recreational Drug Use Recreational Drug Use: No - Living Situation & Occupation Living situation: Reports: Occupation: Disabled ED ROS GENERAL - Review of Systems Review Of Systems: See Below Constitutional: Reports: No Symptoms HEENT: Reports: No Symptoms Respiratory: Reports: No Symptoms Cardiovascular: Reports: No Symptoms Endocrine: Reports: No Symptoms GI/Abdominal: Reports: Abdominal Pain, Constipation. Denies: Nausea, Vomiting : Reports: No Symptoms Musculoskeletal: Reports: No Symptoms ED EXAM, GI/ABD - Physical Exam Exam: See Below Exam Limited By: No Limitations General Appearance: Alert, No Apparent Distress Ears: Normal External Exam Nose: Normal Inspection Head: Atraumatic, Normocephalic Neck: Normal Inspection Respiratory/Chest: No Respiratory Distress, Decreased Breath Sounds, Wheezing ( Moderate) Cardiovascular: Regular Rate, Rhythm, No Edema, No Murmur GI/Abdominal Exam: Soft, Non-Tender, No Organomegaly, No Mass Course - Vital Signs Last Recorded V/S: Last Vital Signs Temp 97.7 F 08/24/19 12:06 Pulse 93 08/24/19 12:06 Resp 20 08/24/19 12:06 BP 111/75 08/24/19 12:06 Pulse Ox 100 08/24/19 12:06 - Orders/Labs/Meds Orders: Active Orders 24 hr Category Date Time Status Enema [RC] ASDIRECTED Care 08/24/19 12:26 Active Magnesium Citrate [Citrate of Magnesia] Med 08/24/19 13:59 Once 296 ml PO ONETIME ONE - Re-Assessments/Exams Free Text/Narrative Re-Assessment/Exam: 08/24/19 12:42 I ordered a soap suds enema. 08/24/19 13:59 She had no output. I will give her some magnesium citrate and discharge her home. Departure - Departure Time of Disposition: 14:00 Disposition: Home, Self-Care 01 Condition: Good Clinical Impression: Constipation Qualifiers: Constipation type: unspecified constipation type Qualified Code(s): K59.00 - Constipation, unspecified - Discharge Information *PRESCRIPTION DRUG MONITORING PROGRAM REVIEWED*: Not Applicable *COPY OF PRESCRIPTION DRUG MONITORING REPORT IN PATIENT DELMIS: Not Applicable Referrals: Gold,Chiquita, [employer] ADJUDICATION SPECIALIST [Primary Care Provider] - 1 Week Forms: ED Department Discharge Additional Instructions: Drink plenty of fluids. Take the magnesium citrate when you get home. You can have a cup full. If you do not have a bowel movement by tonight you can have another dose. Please return if you are worse. Sepsis Event Note - Evaluation Sepsis Screening Result: No Definite Risk - Focused Exam Vital Signs: Vital Signs Temp Pulse Resp BP Pulse Ox 08/24/19 12:06 97.7 F 93 20 111/75 100 Date Exam was Performed: 08/24/19 Time Exam was Performed: 13:59 - My Orders Last 24 Hours: My Active Orders 08/24/19 12:26 Enema [RC] ASDIRECTED 08/24/19 13:59 Magnesium Citrate [Citrate of Magnesia] 296 ml PO ONETIME ONE - Assessment/Plan Last 24 Hours: My Active Orders 08/24/19 12:26 Enema [RC] ASDIRECTED 08/24/19 13:59 Magnesium Citrate [Citrate of Magnesia] 296 ml PO ONETIME ONE
[2019-08-24] MEDS ORDERED: Magnesium Citrate Solution 296 ML Bottle PO ONE (13:59)
== END 2019-08-24 14:25 | disposition home or self-care (01) ==
LOC: JD.ED 11:55
DX: K59.00 Constipation, unspecified (principal); J44.9 Chronic obstructive pulmonary disease, unspecified; F41.9 Anxiety disorder, unspecified; Z87.891 Personal history of nicotine dependence; Z79.899 Other long term (current) drug therapy
CPT/HCPCS: 99283; A9270